=== PATIENT | male | born 1945 | race Caucasian/White ===

== ENCOUNTER 2022-02-15 05:12 | Inpatient (IN) | payer OTHER ==
[2022-02-08 14:58] LABS: BASOPHILS # (AUTO) 0.1 X10'3 (0-0.2); BASOPHILS % (AUTO) 0.7 % (0-1); EOSINOPHILS # (AUTO) 0.2 X10'3 (0-0.9); EOSINOPHILS % (AUTO) 2.7 % (0-6); LYMPHOCYTES # (AUTO) 1.9 X10'3 (1.1-4.8); LYMPHOCYTES % (AUTO) 24.3 % (21-51); MEAN CORPUSCULAR HEMOGLOBIN 31.4 PG (27.0-31.0); MEAN CORPUSCULAR HGB CONC 35.2 g/dL (33.0-36.5); MEAN CORPUSCULAR VOLUME 89.2 FL (78-98); MEAN PLATELET VOLUME 8.6 FL (7.4-10.4); MONOCYTES # (AUTO) 0.7 X10'3 (0-0.9); MONOCYTES % (AUTO) 9.3 % (2-12); NEUTROPHILS # (AUTO) 4.9 X10'3 (1.8-7.7); PRE OP HEMATOCRIT 43.2 % (42.0-52.0); PRE OP HEMOGLOBIN 15.2 g/dL (14.0-17.9); PRE OP PLATELET COUNT 239 X10'3 (140-440); RED BLOOD COUNT 4.84 X10'6 (4.70-6.10); RED CELL DISTRIBUTION WIDTH 13.1 % (11.5-14.5)
[2022-02-08 15:26] LABS: ALBUMIN 3.8 G/DL (3.4-5.0); ALKALINE PHOSPHATASE 51 IU/L (46-116); BLOOD UREA NITROGEN 16 MG/DL (7-18); BUN/CREATININE RATIO 18.4 (5.4-32.0); CALCIUM 9.2 MG/DL (8.5-10.1); CHLORIDE 101 MMOL/L (99-107); CREATININE 0.87 MG/DL (0.60-1.10); PRE OP ALT 45 U/L (30-65); PRE OP ANION GAP 9 (8-16); PRE OP AST 24 U/L (10-37); PRE OP BILIRUB, TOTAL 0.7 MG/DL (0.0-1.0); PRE OP GLUCOSE 103 MG/DL (70-104); PRE OP SODIUM 138 MMOL/L (135-145); TOTAL CARBON DIOXIDE 28.4 MMOL/L (24-32); TOTAL PROTEIN 7.5 G/DL (6.4-8.2); eGFR 86 ML/MIN
[2022-02-08 15:29] LABS: PRE OP POTASSIUM 3.2 MMOL/L (3.4-5.1)
[~2022-02-15] VITALS: Ht 170.2 cm; Wt 99.3 kg
[2022-02-15] VITALS (21 sets, daily range): BP systolic 87–144; BP diastolic 44–75
[~2022-02-15 05:12] MED LIST: AMLO10TA13 PO; CHLO25TA10 PO; CLON0.1T PO; GABA600T13 PO; INDO50CA96 PO; LOSA50TA3 PO; PSYL575P22 PO; TRAZ-256 PO; ringers solution, lacted 1,000 ML IV SCH
--- NOTE | 2022-02-15 05:20 | NUR ---
PATIENT DID NOT WATCH VIDEO AND ACCORDING TO THE PATIENT HIS SURGEON DID NOT ORDER HIM MUPIROCIN. PULSES PALPABLE. SKIN CDI, AND WARM TO TOUCH. EDUCATED PATIENT IN INCENTIVE SPIROMETER USE.
[2022-02-15] MEDS ORDERED: ceFAZolin inj. 2,000 MG in dextrose 5%-water 100 ML IV ONE (05:30)
[2022-02-15] MEDS ORDERED: tranexamic acid inj. 1,000 MG in normal saline 100ml IV soln 100 ML IV ONE (05:30)
[2022-02-15] MEDS ORDERED: metoclopramide 5 mg/ml inj IV ONE (05:30)
[2022-02-15] MEDS ORDERED: famotidine 20mg tablet PO ONE (05:30)
[2022-02-15] MEDS ORDERED: vancomycin 1,500 MG in NS 300ml IV soln IV ONE (05:30)
[2022-02-15] MEDS ORDERED: acetaminophen 325mg tablet PO ONE (05:30)
[2022-02-15] MEDS ORDERED: oxyCODONE SR 10mg (sust. release) tab -2 tabs (20mg) PO ONE (05:30)
[2022-02-15] MEDS ORDERED: gabapentin 300mg capsule PO ONE (05:30)
[2022-02-15] MEDS ORDERED: celeCOXIB 100mg capsule PO ONE (05:30)
[2022-02-15] MEDS ORDERED: tranexamic acid inj. 1,000 MG in normal saline 100ml IV soln 90 ML IV ONE ×2 (06:30→15:00)
[2022-02-15] MEDS ORDERED: oxyCODONE/APAP 10/325mg tablet PO PRN (06:30)
[2022-02-15] MEDS ORDERED: magnesium hydroxide 30ml (MOM) UD suspension PO PRN (06:30)
[2022-02-15] MEDS ORDERED: ondansetron/PF 4mg/2ml inj IV PRN ×2 (06:30→08:55)
[2022-02-15] MEDS ORDERED: naloxone 0.4 mg/ml inj IV PRN (06:30)
[2022-02-15] MEDS ORDERED: bisacodyl 10mg suppository rectal RC PRN (06:30)
[2022-02-15] MEDS ORDERED: HYDROmorphone inj. 0.5 MG/0.5 ML DISP.SYRIN IV PRN (06:30)
[2022-02-15] MEDS ORDERED: acetaminophen 325mg tablet PO PRN (06:30)
[2022-02-15] MEDS ORDERED: diphenhydrAMINE 25mg capsule PO PRN ×2 (06:30)
[2022-02-15] MEDS ORDERED: cloNIDine hcl/PF 100mcg/ml inj ONE (07:01)
[2022-02-15] MEDS ORDERED: ROPIVAcaine 0.5% (5mg/ml) 30ml vial ONE ×2 (07:01→10:05)
[2022-02-15] MEDS ORDERED: epiNEPHrine 1 mg/ml inj ONE (07:01)
[2022-02-15] MEDS ORDERED: vancomycin 1,000mg inj ONE (07:01)
[2022-02-15] MEDS ORDERED: ketorolac trometh. 30mg/ml inj. ONE (07:02)
[2022-02-15] MEDS: multivitamins, therapeutics tablet PO SCH (08:00)
[2022-02-15] MEDS ORDERED: MIDAZolam 1 MG/ML 5ML VIAL ONE (08:19)
[2022-02-15] MEDS ORDERED: acetaminophen 1,000mg/100ml IV 100 ML IV PRN (08:55)
[2022-02-15] MEDS ORDERED: morphine 2 MG/ML inj. syringe IV PRN (08:55)
[2022-02-15] MEDS ORDERED: ringers solution, lacted 1,000 ML IV SCH (08:55)
[2022-02-15] MEDS ORDERED: proCHLORperazine 10 MG/2 ml inj IV PRN (08:55)
[2022-02-15] MEDS ORDERED: meperidine/PF 25mg/ml syringe IV PRN ×3 (08:55)
[2022-02-15] MEDS ORDERED: morphine 4 MG/ML inj SYRINge IV PRN (08:55)
[2022-02-15] MEDS ORDERED: propofol inj 20 ML IV ONE ×3 (10:06)
--- NOTE | 2022-02-15 10:07 | NUR ---
Received from OR via ORTHO BED , accompanied by Anesthesiologist ORIN and report given by Anesthesiolgist. LEFT KNEE WRAP AND + DP TO FOOT. VSS. NO DRAINAGE PRESENT. 20G PIV I LEFT UE RUNNING LR AT 100. DENIES PAIN. SENSATION AT T11 CURRENTLY FROM SPINAL ANESTHESIA. SCDS DONNED. ON Q NERVE BLOCK SITE TO LEFT THIGH AREA WELL. Addendum: 02/15/22 at 1023 by Aman Finney RN, RN Amended: Links added.
[2022-02-15] MEDS: ROPIVAcaine 0.2%/PF PUMP/bolus 545 ML ADDCANAL SCH (10:30)
--- NOTE | 2022-02-15 11:27 | NUR ---
ALL DC CRITERIA FOR TRANSFER TO THE FLOOR HAS BEEN MET. VSS. DENIES PAIN. SPINAL STILL INTACT WELL ON Q PUMP. PATIENT DENIES PAIN. ALL BELONGINGS SENT WITH PATIENT. GLASSES ON AND ONE PIECE DENTURE IN PLACE. AARTI AN AWARE THAT PATIENT HAS ARRIVED. Addendum: 02/15/22 at 1146 by Aman Finney RN, RN Amended: Links added.
--- NOTE | 2022-02-15 11:32 | NUR ---
Received patient report from Aman BROUSSARD will assume patient care when patient comes to the floor.
[2022-02-15 12:27] LABS: ALBUMIN 3.2 G/DL (3.4-5.0); BLOOD UREA NITROGEN 13 MG/DL (7-18); BUN/CREATININE RATIO 14.4 (5.4-32.0); CALCIUM 9.1 MG/DL (8.5-10.1); CHLORIDE 105 MMOL/L (99-107); PRE OP ANION GAP 10 (8-16); PRE OP GLUCOSE 116 MG/DL (70-104); PRE OP POTASSIUM 3.4 MMOL/L (3.4-5.1); PRE OP SODIUM 141 MMOL/L (135-145); TOTAL CARBON DIOXIDE 26.4 MMOL/L (24-32); eGFR 82 ML/MIN
[2022-02-15] MEDS: potassium cl 20mEq in 1/2 NS 1,000 ML IV SCH ×3 (14:30→19:24)
[2022-02-15] MEDS: ascorbic acid 500mg tablet PO SCH ×2 (14:39→21:06)
[2022-02-15] MEDS: aspirin 325mg tablet PO SCH (14:40)
[2022-02-15] MEDS: gabapentin 300mg capsule PO SCH (16:15)
[2022-02-15] MEDS: cefazolin/dext.iso 2gm/100ml 100 ML IV SCH (16:18)
[2022-02-15] MEDS: oxyCODONE/APAP 10/325mg tablet PO PRN ×2 (16:18→21:16)
--- NOTE | 2022-02-15 18:34 | NUR ---
Problems reprioritized. Patient report given, questions answered & plan of care reviewed with Haley De Leon RN.
--- NOTE | 2022-02-15 18:35 | NUR ---
Patient in room ORTHO 4024. I have received report from JUVE BROUSSARD and had the opportunity to ask questions and assume patient care.
[2022-02-15] MEDS ORDERED: VANCOMYCIN 1,500MG inj. 1,500 MG in dextrose 5% water 500ml 500 ML IV SCH (19:00)
[2022-02-15] MEDS: sennosides 8.6mg tablet PO SCH (21:04)
[2022-02-15] MEDS: cloNIDine 0.1 mg tablet PO SCH (21:05)
[2022-02-15] MEDS: traZODone 50mg tablet PO SCH (21:05)
[2022-02-15] MEDS: amLODIPine 5mg tablet PO SCH (21:06)
[2022-02-15] MEDS: chlorthalidone 25mg tablet PO SCH (21:07)
[2022-02-15] MEDS: losartan 50mg tablet PO SCH (21:20)
[2022-02-16] MEDS: gabapentin 300mg capsule PO SCH ×4 (00:13→23:19)
[2022-02-16] MEDS: cefazolin/dext.iso 2gm/100ml 100 ML IV SCH (00:13)
[2022-02-16 05:30] VITALS: BP 143/70
[2022-02-16] MEDS: oxyCODONE/APAP 10/325mg tablet PO PRN ×3 (05:45→18:01)
[2022-02-16 05:55] LABS: BASOPHILS # (AUTO) 0.1 X10'3 (0-0.2); BASOPHILS % (AUTO) 0.5 % (0-1); EOSINOPHILS # (AUTO) 0.4 X10'3 (0-0.9); EOSINOPHILS % (AUTO) 3.5 % (0-6); HEMATOCRIT 39.7 % (42.0-52.0); LYMPHOCYTES # (AUTO) 1.5 X10'3 (1.1-4.8); LYMPHOCYTES % (AUTO) 14.5 % (21-51); MEAN CORPUSCULAR HEMOGLOBIN 31.7 PG (27.0-31.0); MEAN CORPUSCULAR HGB CONC 35.2 g/dL (33.0-36.5); MEAN CORPUSCULAR VOLUME 90.2 FL (78-98); MEAN PLATELET VOLUME 8.7 FL (7.4-10.4); MONOCYTES # (AUTO) 0.9 X10'3 (0-0.9); NEUTROPHILS # (AUTO) 7.6 X10'3 (1.8-7.7); NEUTROPHILS % (AUTO) 72.5 % (42-75); PLATELET COUNT 211 X10'3 (140-440); RED BLOOD COUNT 4.39 X10'6 (4.70-6.10); RED CELL DISTRIBUTION WIDTH 13.3 % (11.5-14.5); WHITE BLOOD COUNT 10.4 X10'3 (4.5-11.0)
[2022-02-16 06:13] LABS: ANION GAP 4 (8-16); CHLORIDE 105 MMOL/L (99-107); POTASSIUM 3.1 MMOL/L (3.5-5.1); SODIUM 139 MMOL/L (135-145); TOTAL CARBON DIOXIDE 30.5 MMOL/L (24-32)
[2022-02-16] MEDS: potassium cl 20mEq in 1/2 NS 1,000 ML IV SCH (06:30)
--- NOTE | 2022-02-16 06:35 | NUR ---
Patient in room ORTHO 4024. I have received report from Haley De Leon RN and had the opportunity to ask questions and assume patient care.
--- NOTE | 2022-02-16 06:36 | NUR ---
Problems reprioritized. Patient report given, questions answered & plan of care reviewed with ANATOLIY RN.
[2022-02-16] MEDS ORDERED: psyllium seed 3.4 gm packet PO SCH (08:00)
[2022-02-16] MEDS ORDERED: potassium CL 10mEq/100ml bag 100 ML IV PRN (08:00)
[2022-02-16] MEDS: K and/or MAG REPLACEMENT MC SCH ×2 (08:00→20:28)
[2022-02-16] MEDS ORDERED: POTASSIUM BICARB 20meq eff tab 20 MEQ TABLET.EFF PO PRN (08:00)
[2022-02-16] MEDS: multivitamins, therapeutics tablet PO SCH (09:59)
[2022-02-16] MEDS: ascorbic acid 500mg tablet PO SCH ×2 (09:59→20:26)
[2022-02-16] MEDS: cloNIDine 0.1 mg tablet PO SCH ×2 (09:59→20:28)
[2022-02-16] MEDS: aspirin 325mg tablet PO SCH (09:59)
[2022-02-16 10:00] VITALS: BP 120/74
[2022-02-16] MEDS: POTASSIUM BICARB 20meq eff tab 20 MEQ TABLET.EFF PO PRN ×3 (10:23→20:23)
--- NOTE | 2022-02-16 11:16 | NUR ---
Joint surgery consult: Pt s/p L knee surgery this admit. Pt seen by THIEN for written/verbal high protein ed w/ RD contact information provided. THIEN encouraged pt to contact dietitian's office if further questions/concerns. Addendum: 02/16/22 at [address] Amended: Links added.
[2022-02-16 14:00] VITALS: BP 125/63
[2022-02-16] MEDS: HYDROmorphone 1 mg/ml syringe IV PRN ×2 (16:13→20:28)
[2022-02-16 18:00] VITALS: BP 137/77
--- NOTE | 2022-02-16 18:35 | NUR ---
Problems reprioritized. Patient report given, questions answered & plan of care reviewed with AARTI Zuniga.
--- NOTE | 2022-02-16 18:44 | NUR ---
Patient in room ORTHO 4024. I have received report from Elba BROUSSARD and had the opportunity to ask questions and assume patient care.
[2022-02-16] MEDS: losartan 50mg tablet PO SCH (20:25)
[2022-02-16] MEDS: amLODIPine 5mg tablet PO SCH (20:25)
[2022-02-16] MEDS: celeCOXIB 100mg capsule PO SCH (20:26)
[2022-02-16] MEDS: chlorthalidone 25mg tablet PO SCH (20:26)
[2022-02-16] MEDS: traZODone 50mg tablet PO SCH (20:26)
[2022-02-16] MEDS: sennosides 8.6mg tablet PO SCH (20:27)
[2022-02-16] MEDS: psyllium seed 3.4 gm packet PO SCH (20:27)
[2022-02-16 22:00] VITALS: BP 144/60
[2022-02-17] MEDS: oxyCODONE/APAP 10/325mg tablet PO PRN ×2 (05:49→14:42)
[2022-02-17 06:00] VITALS: BP 140/66
[2022-02-17 06:24] LABS: BASOPHILS % (AUTO) 0.4 % (0-1); EOSINOPHILS # (AUTO) 0.4 X10'3 (0-0.9); EOSINOPHILS % (AUTO) 3.7 % (0-6); HEMATOCRIT 37.4 % (42.0-52.0); HEMOGLOBIN 13.1 g/dl (14.0-17.9); LYMPHOCYTES # (AUTO) 1.5 X10'3 (1.1-4.8); LYMPHOCYTES % (AUTO) 14.3 % (21-51); MEAN CORPUSCULAR HEMOGLOBIN 31.6 PG (27.0-31.0); MEAN CORPUSCULAR VOLUME 90.1 FL (78-98); MEAN PLATELET VOLUME 9.2 FL (7.4-10.4); MONOCYTES # (AUTO) 0.9 X10'3 (0-0.9); MONOCYTES % (AUTO) 9.4 % (2-12); NEUTROPHILS # (AUTO) 7.3 X10'3 (1.8-7.7); NEUTROPHILS % (AUTO) 72.2 % (42-75); PLATELET COUNT 201 X10'3 (140-440); RED BLOOD COUNT 4.15 X10'6 (4.70-6.10); RED CELL DISTRIBUTION WIDTH 13.3 % (11.5-14.5); WHITE BLOOD COUNT 10.2 X10'3 (4.5-11.0)
--- NOTE | 2022-02-17 06:42 | NUR ---
Problems reprioritized. Patient report given, questions answered & plan of care reviewed with Awa BROUSSARD.
[2022-02-17] MEDS: multivitamins, therapeutics tablet PO SCH (07:56)
[2022-02-17] MEDS: celeCOXIB 100mg capsule PO SCH ×2 (07:56→20:32)
[2022-02-17] MEDS: cloNIDine 0.1 mg tablet PO SCH ×2 (07:57→20:34)
[2022-02-17] MEDS: gabapentin 300mg capsule PO SCH ×2 (07:57→16:56)
[2022-02-17] MEDS: aspirin 325mg tablet PO SCH (07:58)
[2022-02-17] MEDS: K and/or MAG REPLACEMENT MC SCH ×2 (08:00→20:00)
[2022-02-17] MEDS: ascorbic acid 500mg tablet PO SCH ×2 (08:02→20:34)
[2022-02-17] MEDS: ROPIVAcaine 0.2%/PF PUMP/bolus 545 ML ADDCANAL SCH (08:55)
[2022-02-17] MEDS: POTASSIUM BICARB 20meq eff tab 20 MEQ TABLET.EFF PO PRN ×2 (09:29→14:37)
[2022-02-17] MEDS: ROPIVAcaine 0.2% (10 MG/5 ML) BOLUS INJECTION ADDCANAL PRN (09:29)
[2022-02-17 10:00] VITALS: BP 124/60
--- NOTE | 2022-02-17 12:00 | NUR ---
Dr Johanny Cuadra notified that patient has not been released from physical therapy yet. They do not feel like he is safe at this point to go home. He is aware that patient will not be discharged and the goal is to see if he can be safe enough to discharge from phys therapy and then home.
[2022-02-17 18:00] VITALS: BP 126/66
--- NOTE | 2022-02-17 19:06 | NUR ---
Report given to Haley De Leon RN, Pt in bed, ate dinner and is resting comfortably
--- NOTE | 2022-02-17 19:07 | NUR ---
Patient in room ORTHO 4024. I have received report from AMADEO BROUSSARD and had the opportunity to ask questions and assume patient care.
[2022-02-17] MEDS: psyllium seed 3.4 gm packet PO SCH (20:31)
[2022-02-17] MEDS: traZODone 50mg tablet PO SCH (20:31)
[2022-02-17] MEDS: amLODIPine 5mg tablet PO SCH (20:32)
[2022-02-17] MEDS: chlorthalidone 25mg tablet PO SCH (20:34)
[2022-02-17] MEDS: sennosides 8.6mg tablet PO SCH (20:34)
[2022-02-17] MEDS: losartan 50mg tablet PO SCH (20:34)
[2022-02-17 22:00] VITALS: BP 114/65
[2022-02-18] MEDS: POTASSIUM BICARB 20meq eff tab 20 MEQ TABLET.EFF PO PRN
[2022-02-18] MEDS: oxyCODONE/APAP 10/325mg tablet PO PRN ×2 (00:03→05:29)
[2022-02-18 06:00] VITALS: BP 138/64
[2022-02-18 06:23] LABS: BASOPHILS % (AUTO) 0.5 % (0-1); EOSINOPHILS # (AUTO) 0.4 X10'3 (0-0.9); EOSINOPHILS % (AUTO) 3.5 % (0-6); HEMATOCRIT 37.1 % (42.0-52.0); HEMOGLOBIN 13.1 g/dl (14.0-17.9); LYMPHOCYTES # (AUTO) 1.4 X10'3 (1.1-4.8); LYMPHOCYTES % (AUTO) 13.8 % (21-51); MEAN CORPUSCULAR HGB CONC 35.2 g/dL (33.0-36.5); MEAN CORPUSCULAR VOLUME 90.9 FL (78-98); MEAN PLATELET VOLUME 9.1 FL (7.4-10.4); MONOCYTES # (AUTO) 0.9 X10'3 (0-0.9); MONOCYTES % (AUTO) 9.1 % (2-12); NEUTROPHILS # (AUTO) 7.2 X10'3 (1.8-7.7); NEUTROPHILS % (AUTO) 73.1 % (42-75); PLATELET COUNT 195 X10'3 (140-440); RED BLOOD COUNT 4.08 X10'6 (4.70-6.10); RED CELL DISTRIBUTION WIDTH 13.1 % (11.5-14.5); WHITE BLOOD COUNT 9.9 X10'3 (4.5-11.0)
--- NOTE | 2022-02-18 06:30 | NUR ---
Problems reprioritized. Patient report given, questions answered & plan of care reviewed with ADELSO BROUSSARD.
--- NOTE | 2022-02-18 06:40 | NUR ---
Patient in room ORTHO 4024. I have received report from Haley De Leon RN and had the opportunity to ask questions and assume patient care.
[2022-02-18] MEDS: K and/or MAG REPLACEMENT MC SCH (08:00)
[2022-02-18] MEDS: multivitamins, therapeutics tablet PO SCH (08:18)
[2022-02-18] MEDS: ascorbic acid 500mg tablet PO SCH (08:18)
[2022-02-18] MEDS: gabapentin 300mg capsule PO SCH ×2 (08:18)
[2022-02-18] MEDS: aspirin 325mg tablet PO SCH (08:18)
[2022-02-18] MEDS: celeCOXIB 100mg capsule PO SCH (08:19)
[2022-02-18] MEDS: cloNIDine 0.1 mg tablet PO SCH (08:19)
[2022-02-18 10:00] VITALS: BP 126/58
[2022-02-18] MEDS: ROPIVAcaine 0.2% (10 MG/5 ML) BOLUS INJECTION ADDCANAL PRN (13:02)
== END 2022-02-18 13:00 | disposition home or self-care (01) | DRG 470 ==
LOC: PAS 05:12 → PAS IN 06:33 → ORTHO 4S 06:34
PROVIDERS: ADMIT Orthopaedic Surgery; ATTEND Orthopaedic Surgery
PROC: 3E0T3BZ Introduction of Anesthetic Agent into Peripheral Nerves and Plexi, Percutaneous Approach (ICD-10-PCS; 2022-02-15)
PROC: 0SRD0J9 Replacement of Left Knee Joint with Synthetic Substitute, Cemented, Open Approach (ICD-10-PCS; principal; 2022-02-15 08:16)
DX: M17.12 Unilateral primary osteoarthritis, left knee (principal); M21.162 Varus deformity, not elsewhere classified, left knee; M76.9 Unspecified enthesopathy, lower limb, excluding foot; Z20.822 Contact with and (suspected) exposure to COVID-19
CPT/HCPCS: 36415; 71046; 73560; 80047; 80048; 80051; 80053; 82948; 84132; 85025; 86885; 86900; 86901; 87081; 97110; 97116; 97161; 97530; A4215; A7000; C1713; C1776; G0378; J0171; J0690; J0735; J1170; J1885; J2250; J2704; J2765; J2795; J3370; J3480; J3490; J7040; J7060; J7120; U0003; U0005